=== PATIENT | female | born 1940 ===

== ENCOUNTER 2018-04-25 16:55 | Inpatient (IN) | payer OTHER ==
[~2018-04-25] VITALS: Ht 134.6 cm; Wt 67.1 kg
[2018-05-04] MEDS ORDERED: LISINOPRIL10 MG PO (09:31)
[2018-05-04] MEDS ORDERED: VERAPAMIL ER240 MG PO (09:31)
[2018-05-04] MEDS ORDERED: XANAX1 MG PO (09:31)
[2018-05-11] MEDS ORDERED: CIPRO500 MG PO (13:25)
[2018-05-11] MEDS ORDERED: TYLENOL ARTHRI650 MG PO (13:25)
== END 2018-05-11 17:21 | disposition home or self-care (01) | DRG 330 ==
LOC: SURH 05-08 08:30 → O/R 05-08 09:33 → SURH 05-08 09:33
PROVIDERS: Surgery
PROC: 0DBN8ZX Excision of Sigmoid Colon, Via Natural or Artificial Opening Endoscopic, Diagnostic (ICD-10-PCS; 2018-05-08)
PROC: 0D1L4Z4 Bypass Transverse Colon to Cutaneous, Percutaneous Endoscopic Approach (ICD-10-PCS; principal; 2018-05-08 08:30)
DX: C18.7 Malignant neoplasm of sigmoid colon (principal); C78.7 Secondary malignant neoplasm of liver and intrahepatic bile duct; K56.690 Other partial intestinal obstruction; R59.0 Localized enlarged lymph nodes; I10 Essential (primary) hypertension; E78.00 Pure hypercholesterolemia, unspecified

== ENCOUNTER 2018-06-15 05:48 | Day surgery (SDC) | payer OTHER ==
[~2018-06-15 05:48] MED LIST: CIPRO500 MG PO; LISINOPRIL10 MG PO; TYLENOL ARTHRI650 MG PO; VERAPAMIL ER240 MG PO; XANAX1 MG PO
[2018-06-15] MEDS ORDERED: PERCOCET 5-3251 EACH PO (09:31)
== END 2018-06-15 11:45 | disposition home or self-care (01) ==
LOC: CIR.AMB 05:48
DX: C18.7 Malignant neoplasm of sigmoid colon (principal)
CPT/HCPCS: 36561; C1751

== ENCOUNTER 2019-02-11 07:06 | Day surgery (SDC) | payer OTHER ==
[~2019-02-11 07:06] MED LIST changes: +PERCOCET 5-3251 EACH PO
== END 2019-02-11 13:00 | disposition home or self-care (01) ==
LOC: AMB-ENDOS 07:06
DX: D12.7 Benign neoplasm of rectosigmoid junction (principal)

== ENCOUNTER 2019-05-10 06:10 | Day surgery (SDC) | payer OTHER ==
[~2019-05-10 06:10] MED LIST changes: +CALTRATE PO; +FOSAMAX PLUS D1 EACH; +FOSAMAX70 MG PO; +VIT C PO; +VIT E PO
[2019-05-10] MEDS ORDERED: PERCOCET 5-3251 EACH PO (09:02)
== END 2019-05-10 11:10 | disposition home or self-care (01) ==
LOC: CIR.AMB 06:10
DX: C18.7 Malignant neoplasm of sigmoid colon (principal)
CPT/HCPCS: 36561; 36590; C1751